=== PATIENT | female | born 2005 | race Caucasian/White ===

== ENCOUNTER 2024-09-08 11:19 | Outpatient (CLI) | payer OTHER, SELFPAY ==
--- OUTSIDE RECORDS SUMMARY | 2024-09-08 13:15 | XMS_ITS | Clinical Summary ---
Author Organization [facility] Address [address] [place] [address] Care Team Providers Care Clerical Administrative Assistant Name Role Phone Kathleen Bowman MD Primary Care Provider [phone] Source Comments [facility],non-owned Affiliates and Associated Physician Practices is amultiple site organization consisting of ambulatory clinics and hospital sitesin [place], [place]. This disclosure is being madepursuant to the Care Everywhere program and may not contain all information available regarding this patient. Last updated [facility] Allergies No known active allergies Medications * Be aware that medications may not be up to date on this document. Alwaysverify current medications with the patient. Medication Sig Dispensed Refills Start Date End Date Status albuterol HFA (VENTOLIN HFA) 108 (90 BASE) MCG/ACT inhaler Inhale 2 puffs by mouth every 4 hours as needed for Wheezing or Cough 1 Inhaler 5 06/13/2017 Active Active Problems No known active problems Social History Tobacco Use Types Packs/Day Years Used Date Smoking Tobacco: Never Smokeless Tobacco: Never Sex and Gender Information Value Date Recorded Sex Assigned at Not on file Gender Identity Not on file Sexual Orientation Not on file Last Filed Vital Signs Vital Sign Reading Time Taken Comments Blood Pressure 130/68 10/02/2017 2:46 PM CDT Pulse 121 06/13/2017 4:57 PM COACH Temperature 37.2 C (99 F) 06/13/2017 4:57 PM COACH Respiratory Rate 16 06/13/2017 4:57 PM COACH Oxygen Saturation 98% 06/13/2017 4:57 PM COACH Inhaled Oxygen Concentration - - Weight 88.3 kg (194 lb 10.7 oz) 10/02/2017 2:46 PM CDT Height 166 cm (5' 5.35 ) 10/02/2017 2:46 PM CDT Body Mass Index 32.04 10/02/2017 2:46 PM CDT Body Mass Index Percentile 98.53% 10/02/2017 2:4 6 PM CDT Growth Chart: [facility] (Girls, 2- 20 Years) Plan of Treatment Health Maintenance Due Date Last Done Comments HIV SCREENING 09/23/2019 HPV VACCINE (1 - 3-dose series) 09/23/2019 CHLAMYDIA/GONORRHEA SCREENING 2020 MENINGOCOCCAL (Group B) VACC INE SHARED DECISION-MAKING (1 of 2 - Standard) 2020 HEPATITIS C SCREENING 09/18/2022 DTAP/TDAP/TD VACCINES (1 - Tdap) 09/23/2023 HEPATITIS B VACCINE (1 of 3 - 19+ 3-dose series) 09/23/2023 COVID-19 VACCINE (1 - 2023-2 5 season) 2024 DEPRESSION SCREENING 06/04/2024 INFLUENZA VACCINE (Season Ended) 2025 ZOSTER VACCINE (1 of 2) 2054 HIB VACCINE Aged Out No longer eligi ble based on patient's age to complete this topic MENINGOCOCCAL GROUPS A/C/Y/W VACCINE Aged Out No longer eligible b ased on patient's age to complete this topic PNEUMOCOCCAL VACCINE Aged Out No long er eligible based on patient's age to complete this topic Care Teams Clerical Administrative Assistant Relationship Specialty Start Date End Date Kathleen Bowman MD [address] [place] [id number] PCP - General Family Medicine 06/13/17
== END 2024-09-08 11:20 | disposition home or self-care (01) ==
LOC: ANHCARD 11:21
PROVIDERS: PCP Family Medicine; Visit Provider Nurse Practitioner Family
DX: R00.0 Tachycardia, unspecified (principal)
CPT/HCPCS: 93242